=== PATIENT | female | born 1940 | race Caucasian/White ===

== ENCOUNTER → 2016-11-18 | Outpatient (CLI) | payer MEDICARE ==
--- NOTE | 2016-11-18 14:31 | BD ---
EXAMINATION TYPE: MG DEXA axial skeleton. DATE OF EXAM: 11/18/2016 COMPARISON: NONE CLINICAL HISTORY: Postmenopausal screening. Height: 67.5 Weight: 160.1 FRAX RISK QUESTIONS: Alcohol (3 or more units per day): NO Family History (Parent hip fracture): NO Glucocorticoids (More than 3mos): NO (Ex: prednisone, prednisolone, methylprednisolone, dexamethasone, and hydrocortisone). History of Fracture in Adulthood: NO Secondary Osteoporosis: 1. Type 1 Diabetes: NO 2. Hyperthyroidism: NO 3. Menopause before 45: NO 4. Malnutrition: NO 5. Chronic liver disease: NO Rheumatoid Arthritis: NO Current Tobacco Use: NO RISK FACTORS HISTORY OF: Hip Fracture (Right/Left): NO Spine Fracture: NO History of Wrist Fracture: NO Surgery to Spine/Hip(right/left)/Wrist (right/left): NO Family History of Osteoporosis: NO Active: YES Diet low in dairy products/other sources of calcium: NO Postmenopausal woman: AGE 56 Lost more than 2 inches in height since high school: NO Frequent falls: NO Poor Health: NO Hyperparathyroidism: NO Adrenal Insufficiency: NO MEDICATIONS: SYMBALTA Additional History: EXAM MEASUREMENTS: Bone mineral densitometry was performed using the [employer] System. Bone mineral density as measured about the Lumbar spine is: ----- L1-L4(G/cm2): 1.085 T Score Values are as follows: ----- L2: -1.2 ----- L3: -1.0 ----- L4: 0.0 ----- L1-L4: 0.8 Bone mineral density has: INCREASED 0.9 % since study of: 10.25.2011 Bone mineral density about the R hip (g/cm2): 0.765 Bone mineral density about the L hip (g/cm2): 0.745 T Score values are as follows: -----R Neck: -2.0 -----L Neck: -2.1 -----R Total: -2.3 -----L Total: -2.6 Bone mineral density has: DECREASED -10.5 % since study of: 10.25.2011 IMPRESSION: 1. Osteoporosis (T Score less than -2.5) as noted by T Score values at with regards to the left hip. There is increased fracture risk and therapy is usually indicated based on age. Re-Screen 1-2 years. 2.Osteoporosis (T Score less than -2.5) as noted by T Score values at with regards to the right hip. There is increased fracture risk and therapy is usually indicated based on age. Re-Screen 1-2 years. NOTE: T-SCORE=SD OF THE YOUNG ADULT MEAN.
== END | disposition home or self-care (01) ==
LOC: RADBDWWP 07:56
PROVIDERS: ATTEND Family Medicine
DX: M81.0 Age-related osteoporosis without current pathological fracture (principal)
CPT/HCPCS: 77080

== ENCOUNTER → 2018-11-28 | Outpatient (CLI) | payer MEDICARE ==
--- NOTE | 2018-11-28 15:08 | BD ---
EXAMINATION TYPE: Axial Bone Density DATE OF EXAM: 11/28/2018 COMPARISON: 11/18/2016 CLINICAL HISTORY: Z 13.820 Height: 66.7 IN Weight: 161 LBS RISK FACTORS HISTORY OF: Active: YES Postmenopausal woman: AGE 54 Frequent falls: YES LOSES BALANCE MEDICATIONS: Thyroid Medications: YES Which medication: Levothyroxine How Lon YEAR Additional Medications: LEVOTHYROXINE, LISINOPRIL, HYDOTHAZIDE, ATORVASTATIN, ESCITALOPRAM, DONEPEZIL EXAM MEASUREMENTS: Bone mineral densitometry was performed using the [employer] System. Bone mineral density as measured about the Lumbar spine is: ----- L1-L4(G/cm2): 1.074 T Score Values are as follows: ----- L2: -1.2 ----- L3: -0.4 ----- L4: -1.0 ----- L1-L4: -0.9 Bone mineral density has: Decreased -1.9% since study of: 11/18/2016 Bone mineral density about the R hip (g/cm2): 0.727 Bone mineral density about the L hip (g/cm2): 0.697 T Score values are as follows: -----R Neck: -2.2 -----L Neck: -2.5 -----R Total: -2.4 -----L Total: -2.6 Bone mineral density has: Decreased -0.7% since study of: 11/18/2016 IMPRESSION: Osteoporosis (T Score less than -2.5). There is increased fracture risk and therapy is usually indicated based on age. Re-Screen 1-2 years. NOTE: T-SCORE=SD OF THE YOUNG ADULT MEAN.
--- NOTE | 2018-11-30 10:57 | MM ---
Reason for exam: screening (asymptomatic). Last mammogram was performed 6 years and 2 months ago. History: Patient is postmenopausal. Family history of breast cancer in mother at age 80. Physical Findings: A clinical breast exam by your physician is recommended on an annual basis and results should be correlated with mammographic findings. MG 3D Screening Mammo W/Cad Bilateral CC and MLO view(s) were taken. Prior study comparison: October 27, 2017, mammogram. October 25, 2016, mammogram. The breast tissue is heterogeneously dense. This may lower the sensitivity of mammography. No significant changes when compared with prior studies. ASSESSMENT: Negative, BI-RAD 1 RECOMMENDATION: Routine screening mammogram of both breasts in 1 year.
== END ==
LOC: RADMAMWWP 14:09
PROVIDERS: ATTEND Obstetrics & Gynecology
DX: Z13.820 Encounter for screening for osteoporosis (principal); Z12.31 Encounter for screening mammogram for malignant neoplasm of breast; Z78.0 Asymptomatic menopausal state; M81.0 Age-related osteoporosis without current pathological fracture; Z80.3 Family history of malignant neoplasm of breast
CPT/HCPCS: 77063; 77067; 77080

== ENCOUNTER → 2019-09-02 | Outpatient (CLI) | payer MEDICARE ==
--- NOTE | 2019-09-02 12:12 | MR ---
EXAMINATION TYPE: MR brain wo/w con DATE OF EXAM: 09/02/2019 9:06 AM COMPARISON: NONE HISTORY: G81.90 hemiplegia, Balance loss, Memmory loss/Forgetfulness CONTRAST: Patient received 7.5 mL intravenous Gadavist gadolinium contrast. Multiplanar and multispin-echo imaging of the brain was performed . Pre and post contrast enhanced i mages are obtained. The ventricles, basal cisterns and sulci overlying the cerebral convexities are at least moderately e nlarged with a greater central component raising the possibility of normal pressure hydrocephalus. There is evidence of mild periventricular white matter ischemic demyelination. Remote deep white matter insults are also noted. No acute edema is seen on diffusion weighted imaging. There is no evidence for midline shift or mass effect. Acute intracranial hemorrhage or extra-axial collection is not evident. No enhancing lesions are seen. The paranasal sinuses and mastoid air cells are well-aerated. IMPRESSION: Age-related atrophic and chronic small vessel ischemic change. Correlate for normal pressure hydroce phalus. No acute intracranial process at this time. No enhancing lesions are seen.
== END | disposition home or self-care (01) ==
LOC: RADMRIMAIN 08:04
PROVIDERS: ATTEND Family Medicine
DX: G31.1 Senile degeneration of brain, not elsewhere classified (principal); I67.82 Cerebral ischemia
CPT/HCPCS: 70553; A9585

== ENCOUNTER → 2019-12-13 | Outpatient (CLI) | payer MEDICARE ==
--- NOTE | 2019-12-15 09:58 | MR ---
MRI CERVICAL SPINE: CLINICAL HISTORY: Stiffness, Myelopathy gait ataxia. TECHNIQUE: Multiplanar, multisequence imaging of the cervical spine is performed without IV contrast. COMPARISON: None. FINDINGS: Coronal images show slight levoconvex scoliotic curvature centered upper thoracic spine. Sa gittal images of the cervical spine show the craniocervical junction to appear within normal limits. The cervical and upper thoracic spinal cord is normal in caliber and signal. Slight grade 1 retrolis thesis C3 on C4 and C5 on C6. The vertebral body heights are normal. Mild multilevel disc space narr owing greatest C5-C6 and C6-C7 levels. Mild multilevel anterior spurring. The bone marrow signal int ensity is within normal limits. Axial images show C2-C3, C3-C4, and C4-C5 levels to appear grossly within normal limits. Axial images at C5-C6 level showed broad based left paracentral spur disc complex effacing anterolate ral thecal sac and causing moderate to severe bilateral neural foraminal narrowing as there is uncove rtebral facet degenerative change also present bilaterally. Axial images at C6-C7 levels with broad-based right paracentral/foraminal disc protrusion effacing an terolateral thecal sac and causing asymmetric moderate right-sided neural foraminal narrowing. Axial images at C7-T1 level are within normal limits. Small subcentimeter rim T1 and T2 hyperintense lesion right inferior C7 level of uncertain etiology favored benign. IMPRESSION: Scoliotic curvature with multilevel degenerative changes C5-C6 and C6-C7 level as detaile d above.
== END | disposition home or self-care (01) ==
LOC: RADMRIMAIN 09:43
PROVIDERS: ATTEND Psychiatry & Neurology Neurology
DX: M48.02 Spinal stenosis, cervical region (principal); M50.023 Cervical disc disorder at C6-C7 level with myelopathy; M47.12 Other spondylosis with myelopathy, cervical region; M41.82 Other forms of scoliosis, cervical region
CPT/HCPCS: 72141

== ENCOUNTER 2021-03-18 09:31 | Day surgery (SDC) | payer MEDICARE ==
[2021-03-16 11:08] VITALS: BMI 26.6
[~2021-03-18 09:31] MED LIST: LACTATED RINGERS 1,000 ML IV SCH
[2021-03-18 10:23] VITALS: RESP 16; TEMP 97.1
--- NOTE | 2021-03-18 11:06 | P.PCN ---
Date of Procedure: 03/18/21 Procedure(s) Performed: Preoperative diagnosis: Normal pressure hydrocephalus Post operative diagnoses: Normal pressure hydrocephalus Procedure= lumbar puncture Anesthesia local infiltration with lidocaine 1% 3 mL. Condition: stable Complication: none. Description of the procedure procedure risk and benefits discussed with the patient and family, consent signed. Patient and the procedure area placed in lateral position ( right side down ), back prepped with chlorhexidine 3 times been local infiltration of the skin and subcutaneous tissue with lidocaine 1% 3 mL for skin and subcu interstitial infiltrations at L4 5 levels then 20-gauge Quincke-type needle advanced slowly at L4- 5 interlaminar space there was positive cerebrospinal fluid which was clear, no heme, no paresthesia ,total of 32 ML of clear cerebrospinal fluid collected in 4 different tubes 8 mL in each, then the needle removed and a Band-Aid applied and patient tolerated the procedure well without any complications. Opening pressure=17 cm water . Closing pressure=8 cm water. Total volume removed=32 ml of clear cerebrospinal fluid
[2021-03-18 11:30] VITALS: BP 184/69; PULSE 59
[2021-03-18] MEDS ORDERED: IV FLUID CONTINUATION 1,000 ML IV ONE (11:33)
[2021-03-18 12:21] LABS: Glucose,CSF 68 mg/dL (40-70); Total Protein,CSF 33 mg/dL (12-60)
[2021-03-18 14:22] LABS: CSF Tube Number 4
[2021-03-18 14:23] LABS: Appearance,CSF Clear; Nucleated Cells, CSF 1 u/L (0-5); Red Blood Cell,CSF 0 u/L (0-10)
== END 2021-03-18 11:46 | disposition home or self-care (01) ==
LOC: ORPAIN 09:31
PROVIDERS: ATTEND Specialist
DX: G91.2 (Idiopathic) normal pressure hydrocephalus (principal)
CPT/HCPCS: 62270; 82945; 84157; 88108; 89050; 99152; 99153

== ENCOUNTER → 2021-04-26 | Outpatient (CLI) | payer MEDICARE ==
--- NOTE | 2021-04-27 01:57 | MR ---
EXAMINATION TYPE: MR brain wo/w con DATE OF EXAM: 04/26/2021 COMPARISON: 09/02/2019 HISTORY: Abnormal gait, amnesia. CONTRAST: Standard multiplanar, multisequence MRI departmental protocol images were obtained without contrast a nd with 7.5 mL intravenous Gadavist gadolinium contrast. There is enlargement of the ventricles. There is cerebral cortical atrophy. There is no mass effect o r midline shift. There is no sign of intracranial hemorrhage. There is poorly marginated 7 mm area of increased signal within the central [place]ina on the T2 and FLAIR images. The diffusion images show no ev idence of an acute infarct. There is increased signal in the white matter adjacent to the lateral frances tricles and coalescent distribution measuring up to 1 cm in thickness. There is significant thinning of the corpus callosum. The contrast images show normal enhancement of the venous sinuses. There is no pathologic enhancement . IMPRESSION: Cerebral atrophy and chronic small vessel extensive ischemia. Hydrocephalus. 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 No acute intracranial abnormality. No significant change compared to last exam.
== END | disposition home or self-care (01) ==
LOC: RADMRIMAIN 18:37
PROVIDERS: ATTEND Neurological Surgery
DX: G31.89 Other specified degenerative diseases of nervous system (principal); I67.82 Cerebral ischemia; G91.9 Hydrocephalus, unspecified; I63.81 Other cerebral infarction due to occlusion or stenosis of small artery
CPT/HCPCS: 70553; A9585

== ENCOUNTER → 2021-05-10 | Outpatient (CLI) | payer MEDICARE ==
--- NOTE | 2021-05-10 12:04 | MR ---
EXAMINATION TYPE: MR brain wo/w con DATE OF EXAM: 05/10/2021 COMPARISON: Recent MRI brain 2 weeks ago and older study 2019. HISTORY: PROBLEMS WITH MEMORY/FORGETFULNESS TECHNIQUE: Multiplanar, multisequence images of the brain and brainstem is performed without and with IV contras t, utilizing 8ML mL intravenous Gadavist . FINDINGS: Diffusion weighted images demonstrate no evidence of a recent infarct or other diffusion ab normality. Ventricular and sulcal prominence is redemonstrated including ventricular prominence more prominent than the degree of sulcal effacement consistent with moderate diffuse hydrocephalus. Stable prominence of the fourth ventricle. Scattered focal and confluent areas of T2 hyperintensity through out the deep and periventricular white matter. Midline structures demonstrate normal morphology. The craniocervical junction appears within normal limits. Post contrast images demonstrate no abnormal enhancement. The dural venous sinuses appear pa tent. The visualized sinuses are clear and the globes are intact. Nasal septum is redemonstrated slig htly deviated to right of midline. IMPRESSION: Mild to moderate diffuse cerebral atrophy and moderate to advanced chronic small vessel i schemic change redemonstrated. Underlying moderate hydrocephalus again seen. No significant change fr om prior MRIs.
== END | disposition home or self-care (01) ==
LOC: RADMRIMAIN 06:30
PROVIDERS: ATTEND Neurological Surgery
DX: I67.82 Cerebral ischemia (principal); G31.89 Other specified degenerative diseases of nervous system; G91.9 Hydrocephalus, unspecified
CPT/HCPCS: 70553; A9585

== ENCOUNTER → 2021-08-06 | Outpatient (CLI) | payer MEDICARE ==
--- NOTE | 2021-08-06 15:08 | CT ---
EXAMINATION TYPE: CT brain wo con DATE OF EXAM: 08/06/2021 COMPARISON: Correlation MRI 05/10/2021 HISTORY: 81-year-old female r/o bleed and recheck shunt TECHNIQUE: Examination was done in axial plane without intravenous contrast. Coronal and sagittal r econstructions performed. CT DLP: 1248 mGycm Automated exposure control for dose reduction was used. FINDINGS: Anterior right frontal approach NANOSCIENCE TECHNICIAN shunt catheter. Tip is at the midline anterior third ventricle. Similar moderate hydrocephalus with Roosevelt's ratio calculated at 0.34. There is no evidence of acute intracranial hemorrhage, acute ischemic changes, mass, mass-effect, or extra-axial fluid collection. There is no effacement of cerebral sulci or basal subarachnoid cister ns. There is no midline shift. Baker-white matter distinction is preserved. Moderate confluent white matter hypodensities both cerebral hemispheres. Benign basal ganglion calcifications both sides. Slightly bulbous appearance to the top of the basilar artery at 4 mm, unchanged. Rightward nasal septal deviation. Paranasal sinuses and mastoid air cells well pneumatized. Small 1.0 cm polyp or mucosal retention cyst floor of the left maxillary sinus. IMPRESSION: 1. Interval placement of anterior right frontal approach NANOSCIENCE TECHNICIAN shunt catheter. There is similar moderate ventriculomegaly, Roosevelt's ratio 0.34, when compared to the 05/10/2021 MRI prior to shunt placement. 2. Similar moderate confluent white matter hypodensities. 3. No acute intracranial abnormality seen.
== END | disposition home or self-care (01) ==
LOC: RADCTMAIN 13:30
PROVIDERS: ATTEND Neurological Surgery
DX: Z98.2 Presence of cerebrospinal fluid drainage device (principal)
CPT/HCPCS: 70450

== ENCOUNTER → 2021-11-17 | Outpatient (CLI) | payer MEDICARE ==
--- NOTE | 2021-11-17 08:12 | CT ---
EXAMINATION TYPE: CT brain wo con DATE OF EXAM: 11/17/2021 COMPARISON: 08/06/2021 INDICATION: Presence of cerebrospinal fluid, loss of balance memory loss incontinence DLP: 1054.20 mGycm, Automated exposure control for dose reduction was used. CONTRAST: None CT of the brain is performed utilizing 3 mm thick sections through the posterior fossa and 3 mm thick sections through the remaining calvarium. Study is performed within 24 hours of arrival to the hosp [facility]. No abnormal hyperdensity is present to suggest an acute intracranial hemorrhage. No mass lesion is evident. There is some mild periventricular white matter hypodensity, most likely on the basis of chronic whit e matter ischemic changes. This present previously. Some physiologic basal ganglion calcifications pr esent. Ventricles and sulci are prominent for the patient age. No significant temporal horn rounding is german dent. These appear slightly less prominent than the comparison study. Shunt catheter enters on the ri t frontal region with the tip in the midline. No increasing ventricular dilatation is evident. Thir d ventricle is midline. Fourth ventricle is midline. Paranasal sinuses and mastoid air cells within the [id number] are clear. IMPRESSIONS: 1. Atrophy with chronic appearing periventricular white matter ischemic-type changes. 2. Shunt catheter appears stable in position. Ventricular prominence is minimally less than the gerson rison study. No increasing hydrocephalus is evident.
== END | disposition home or self-care (01) ==
LOC: RADCTMAIN 06:48
PROVIDERS: ATTEND Neurological Surgery
DX: G31.9 Degenerative disease of nervous system, unspecified (principal); I67.82 Cerebral ischemia; Z98.2 Presence of cerebrospinal fluid drainage device
CPT/HCPCS: 70450

== ENCOUNTER → 2022-07-20 | Outpatient (CLI) | payer MEDICARE ==
--- NOTE | 2022-07-20 14:59 | CT ---
EXAMINATION TYPE: CT brain wo con DATE OF EXAM: 07/20/2022 HISTORY: Follow up for shunt placement. CT DLP: 1138 mGycm. Automated Exposure Control for Dose Reduction was Utilized. TECHNIQUE: CT scan of the head is performed without contrast. COMPARISON: CT brain November 17, 2021. FINDINGS: Persistent right frontal kenyon hole with TEACHER LEARNING DISABLED shunt catheter terminating near the level of for amen of [place]. Persistent mild to moderate ventricular and sulcal prominence with ventricular promin ence slightly greater than degree of sulcal effacement. No significant change from most recent prior CT in ventricular size . Persistent moderate low attenuation in the deep and periventricular white m atter redemonstrated. No midline shift is seen. Globes are intact and visualized paranasal sinuses ar e clear IMPRESSION: As above. No significant change from most recent CT.
== END | disposition home or self-care (01) ==
LOC: RADCTMAIN 14:34
PROVIDERS: ATTEND Neurological Surgery
DX: Z98.2 Presence of cerebrospinal fluid drainage device (principal)
CPT/HCPCS: 70450

== ENCOUNTER → 2022-10-12 | Outpatient (CLI) | payer MEDICARE ==
--- NOTE | 2022-10-13 08:44 | CT ---
EXAMINATION TYPE: CT brain wo con DATE OF EXAM: 10/12/2022 COMPARISON: 07/20/2022 HISTORY: f/u shunt placement CT DLP: 1029.9 mGycm Automated exposure control for dose reduction was used. FINDINGS: Persistent right frontal kenyon hole with CAFETERIA ASSOCIATE shunt catheter terminating near the level of foramen of [place]. Persistent mild to moderate ventricular and sulcal prominence with ventricular prominence sligh tly greater than degree of sulcal effacement. No significant change from most recent prior CT in vent ricular size . Persistent moderate low attenuation in the deep and periventricular white matter redemonstrated. No m idline shift is seen. Globes are intact and visualized paranasal sinuses are clear of basal ganglia c alcifications noted. Hypoattenuation within the white matter bilaterally Remote white matter ischemia. Surgical changes in both calvarium. Slightly prominent basilar tip and 4 mm is stable. IMPRESSION: THERE REMAINS MODERATE VENTRICULAR PROMINENCE. FINDINGS ARE COMPATIBLE STABLE HYDROCEPHALUS. THE CATH ETER IS IN SIMILAR POSITION RELATIVE TO THE PRIOR EXAM NEAR THE FORAMEN. OF [place]. THE SHUNT MAY EXTE ND OUTSIDE THE VENTRICULAR MARGIN CORRELATE FOR POSITION. FINDINGS ARE STABLE..
== END | disposition home or self-care (01) ==
LOC: RADCTMAIN 17:04
PROVIDERS: ATTEND Neurological Surgery
DX: Z98.2 Presence of cerebrospinal fluid drainage device (principal)
CPT/HCPCS: 70450

== ENCOUNTER → 2023-06-06 | Outpatient (CLI) | payer MEDICARE ==
--- NOTE | 2023-06-06 13:05 | CT ---
EXAMINATION TYPE: CT brain wo con DATE OF EXAM: 06/06/2023 COMPARISON: 10/12/2022 INDICATION: cerebral spinal fluid shunt DLP: 1141 mGycm, Automated exposure control for dose reduction was used. CONTRAST: None CT of the brain is performed utilizing 3 mm thick sections through the posterior fossa and 3 mm thick sections through the remaining calvarium. Study is performed within 24 hours of arrival to the hosp ital. No abnormal hyperdensity is present to suggest an acute intracranial hemorrhage. No mass lesion is evident. No acute infarcts are evident. Mild periventricular white matter hypodensity is present, likely on th e basis of chronic white matter ischemic changes. Ventricles and sulci are mildly prominent. for the patient age. No significant temporal horn dilatat ion is evident. Lateral ventricles appear symmetrical. Third ventricle is midline. Fourth ventricle i s midline. Findings are stable from comparison. Paranasal sinuses and mastoid air cells within the [id number] are clear. IMPRESSION: 1. Shunt catheter stable in position. No hydrocephalus. 2. Stable chronic appearing periventricular white matter ischemic type change with atrophy.
== END | disposition home or self-care (01) ==
LOC: RADCTMAIN 12:16
PROVIDERS: ATTEND Specialist
DX: I67.82 Cerebral ischemia (principal); Z98.2 Presence of cerebrospinal fluid drainage device; G31.89 Other specified degenerative diseases of nervous system
CPT/HCPCS: 70450

== ENCOUNTER 2023-06-12 04:40 | Emergency (ER) | payer MEDICARE ==
[2023-06-12 04:51] VITALS: RESP 18
[2023-06-12] MEDS: SODIUM CHLORIDE 0.9% 1,000 ML IV STA (05:49)
[2023-06-12 06:18] LABS: Basophils # (A) 0.1 k/uL (0-0.2); Basophils % (A) 0 %; Eosinophils # (A) 0.2 k/uL (0-0.7); Eosinophils % (A) 2 %; HCT 33.7 % (34.0-46.0); HGB 10.9 gm/dL (11.4-16.0); Lymphocytes # (A) 1.6 k/uL (1.0-4.8); Lymphocytes % (A) 12 %; MCH 29.9 pg (25.0-35.0); MCHC 32.4 g/dL (31.0-37.0); MCV 92.3 fL (80.0-100.0); Mean Platelet Volume 8.3; Monocytes # (A) 0.5 k/uL (0-1.0); Monocytes % (A) 4 %; Neutrophils # (A) 10.8 k/uL (1.3-7.7); Neutrophils % (A) 81 %; Platelet Count 270 k/uL (150-450); RBC 3.65 m/uL (3.80-5.40); RDW 14.1 % (11.5-15.5); WBC 13.4 k/uL (3.8-10.6)
[2023-06-12 06:31] LABS: ALT 58 U/L (4-34); AST 153 U/L (14-36); African American GFR (CKD) 57 (>60 ml/min/1.73 sqM); Alkaline Phosphatase 110 U/L (38-126); Amylase 44 U/L (30-110); Anion Gap 7 mmol/L; Blood Urea Nitrogen 34 mg/dL (7-17); Calcium 9.5 mg/dL (8.4-10.2); Carbon Dioxide 27 mmol/L (22-30); Chloride 108 mmol/L (98-107); Glucose 138 mg/dL (74-99); Lipase 103 U/L (23-300); Non-African American GFR(CKD) 49 (>60 ml/min/1.73 sqM); Potassium 3.9 mmol/L (3.5-5.1); Sodium 142 mmol/L (137-145); Total Bilirubin 0.4 mg/dL (0.2-1.3); Total Protein 6.7 g/dL (6.3-8.2)
--- NOTE | 2023-06-12 06:50 | ED ---
General Adult HPI - General Chief complaint: Abdominal Pain Stated complaint: Abdominal Pain Time Seen by Provider: 06/12/23 05:20 Source: patient, RN notes reviewed, old records reviewed Mode of arrival: ambulatory Limitations: no limitations - History of Present Illness Initial comments: Is a 83-year-old female presents emergency department with acute onset of abdominal pain. Has a history of hypertension, hyperlipidemia, memory impairmen t, with a ocular shunt for normal pressure hydrocephalus. Awoke this morning at approximately 4 AM with severe nonfocal abdominal pain. Resolved by the time she arrived in the emergency department less than 15 minutes later. Has no acute complaints at this time. Is resting comfortably. No symptoms prior to this event. Presents with her . Chest pain, abdominal pain, nausea, vomiting, diarrhea, constipation. Denies shortness of breath. Presents for further evaluation. - Related Data Home Medications Medication Instructions Recorded Confirmed Donepezil HCl [Aricept ODT] 10 mg PO HS 03/16/21 03/16/21 Escitalopram [Lexapro] 10 mg PO HS 03/16/21 03/16/21 Levothyroxine Sodium [Synthroid] 88 mcg PO QAM 03/16/21 03/16/21 Rosuvastatin Calcium 10 mg PO HS 03/16/21 03/16/21 Trospium Chloride [Sanctura] 20 mg PO BID 03/16/21 03/16/21 lisinopriL [Prinivil] 10 mg PO QAM 03/16/21 03/16/21 Allergies Allergy/AdvReac Type Severity Reaction Status Date / Time No Known Allergies Allergy Verified 06/12/23 04:50 Review of Systems ROS Statement: Those systems with pertinent positive or pertinent negative responses have been documented in the HPI. Review of Systems: CONST: Denies fever EYES: Denies blurry vision ENT: Denies nasal congestion C/V: Denies Chest pain RESP: Denies shortness of breath GI: Denies abdominal pain : Denies dysuria SKIN: Denies rash. MSK: Denies joint pain. NEURO: Denies headache ROS Other: All systems not noted in ROS Statement are negative. Past Medical History Past Medical History: Hyperlipidemia, Hypertension, Memory Impairment Additional Past Medical History / Comment(s): being worked for normal pressure hydrocephalus,increased loss of balance-using a walker, hx urinary incontince History of Any Multi-Drug Resistant Organisms: None Reported Additional Past Surgical History / Comment(s): childbirth,colonoscopies, shunt Past Anesthesia/Blood Transfusion Reactions: No Reported Reaction Past Psychological History: Anxiety Smoking Status: Former smoker Past Alcohol Use History: None Reported Past Drug Use History: None Reported - Past Family History Mother Family Medical History: Cancer Additional Family Medical History / Comment(s): breast General Exam - General Exam Comments Initial Comments: General: Appears in no acute distress. HEAD: Normal with no signs of head trauma. EYES: PERRLA, EOMI, conjunctiva normal, no discharge. ENT: Hearing grossly intact, normal oropharynx. RESPIRATORY: Clear breath sounds bilaterally. No wheezes, rales, or rhonchi. C/V: Regular rate and rhythm. S1 and S2 auscultated, no edema, peripheral pulses 2+ and intact throughout ABD: Abd is soft, nontender, nondistended EXT: Normal range of motion, no obvious deformity SKIN: No rashes or lesions observed on exposed skin. NEURO: Alert and oriented x 3. At her mental status baseline. Limitations: no limitations Course Vital Signs 06/12/23 06/12/23 04:48 07:28 Temperature 98.3 F 98.2 F Pulse Rate 54 L 62 Respiratory 18 18 Rate Blood Pressure 180/73 189/72 O2 Sat by Pulse 100 100 Oximetry Medical Decision Making - Medical Decision Making Was pt. sent in by a medical professional or institution ([facility], [employer]SEMBLER, urgent care, hospital, or snf...) When possible be specific @ -No Did you speak to anyone other than the patient for history (EMS, parent, family, police, friend...)? What history was obtained from this source @ -Patient's helps with patient's past medical history. Did you review nursing and triage notes (agree or disagree)? Why? @ -I reviewed and agree with nursing and triage notes Were old charts reviewed (outside hosp., previous admission, EMS record, old EKG, old radiological studies, urgent care reports/EKG's, snf records)? Report findings @ -No old charts were reviewed Differential Diagnosis (chest pain, altered mental status, abdominal pain women, abdominal pain men, vaginal bleeding, weakness, fever, dyspnea, syncope, headache, dizziness, GI bleed, back pain, seizure, CVA, palpatations, mental health, musculoskeletal)? @ -Abdominal pain, gastritis, electrolyte abnormality, UTI. This list is not all inclusive. EKG interpreted by me (3pts min.). @ -As above X-rays interpreted by me (1pt min.). @ -None done CT interpreted by me (1pt min.). @ -None done U/S interpreted by me (1pt. min.). @ -None done What testing was considered but not performed or refused? (CT, X-rays, U/S, labs)? Why? @ -Considered imaging however patient has no symptoms at this time. Will obtain laboratory studies first and patient and patient's were in agreement this plan. What meds were considered but not given or refused? Why? @ -None Did you discuss the management of the patient with other professionals (professionals i.e. , PA, ELECTRONICS ASSEMBLER, lab, RT, psych nurse, high school social studies teacher, nuclear unit operator, teacher, chief resource officer, case repairer)? Give summary @ -No Was smoking cessation discussed for >3mins.? @ -No Was critical care preformed (if so, how long)? @ -No Were there social determinants of health that impacted care today? How? (Homelessness, low income, unemployed, alcoholism, drug addiction, transportation, low edu. Level, literacy, decrease access to med. care, [facility], rehab)? @ -No Was there de-escalation of care discussed even if they declined (Discuss DNR or withdrawal of care, Hospice)? DNR status @ -No What co-morbidities impacted this encounter? (DM, HTN, Smoking, COPD, CAD, Cancer, CVA, ARF, Chemo, Hep., AIDS, mental health diagnosis, sleep apnea, morbid obesity)? @ -None Was patient admitted / discharged? Hospital course, mention meds given and route, prescriptions, significant lab abnormalities, going to OR and other per tinent info. @ -Based on the patient's presentation and physical exam, presents emergency department complaining of nonspecific abdominal pain that resolved prior to arrival. Lasted less than 15 minutes. Denies any other associated symptoms. We will obtain screening abdominal labs as well as screening EKG. in agreement this plan. She will be given a 1 L fluid bolus. EKG shows no signs of acute ischemia.Laboratory studies are all within acceptable limits at this time. Urinalysis was pending but returned normal. On reevaluation, patient has no symptoms. Discussed option of CT imaging and we all agree including her to defer at this time. Patient be discharged home at this time with strict return precautions. I instructed the patient to follow up with their PCP in the next 1-3 days. I explained that the patient should return to the emergency department if they ex perience any worsening symptoms. Strict return precautions were discussed with the patient. The patient expressed understanding of these instructions. I answered all questions that the patient had. The patient was discharged home in good condition with their prescriptions and follow up information. Undiagnosed new problem with uncertain prognosis? @ -No Drug Therapy requiring intensive monitoring for toxicity (Heparin, Nitro, Insulin, Cardizem)? @ -No Were any procedures done? @ -No Diagnosis/symptom? @ -Abdominal pain of unknown etiology Acute, or Chronic, or Acute on Chronic? @ -Acute Uncomplicated (without systemic symptoms) or Complicated (systemic symptoms)? @ -Uncomplicated Side effects of treatment? @ -None Exacerbation, Progression, or Severe Exacerbation] @ -No Poses a threat to life or bodily function? @ -Unlikely - Lab Data Result diagrams: 06/12/23 05:51 06/12/23 05:51 Lab Results 06/12/23 06/12/23 06/12/23 Range/Units 05:51 05:51 05:51 WBC 13.4 H (3.8-10.6) k/uL RBC 3.65 L (3.80-5.40) m/uL Hgb 10.9 L (11.4-16.0) gm/dL Hct 33.7 L (34.0-46.0) % MCV 92.3 (80.0-100.0) fL MCH 29.9 (25.0-35.0) pg MCHC 32.4 (31.0-37.0) g/dL RDW 14.1 (11.5-15.5) % Plt Count 270 (150-450) k/uL MPV 8.3 Neutrophils % 81 % Lymphocytes % 12 % Monocytes % 4 % Eosinophils % 2 % Basophils % 0 % Neutrophils # 10.8 H (1.3-7.7) k/uL Lymphocytes # 1.6 (1.0-4.8) k/uL Monocytes # 0.5 (0-1.0) k/uL Eosinophils # 0.2 (0-0.7) k/uL Basophils # 0.1 (0-0.2) k/uL Sodium 142 (137-145) mmol/L Potassium 3.9 (3.5-5.1) mmol/L Chloride 108 H (98-107) mmol/L Carbon Dioxide 27 (22-30) mmol/L Anion Gap 7 mmol/L BUN 34 H (7-17) mg/dL Creatinine 1.06 H (0.52-1.04) mg/dL Est GFR (CKD-EPI)AfAm 57 (>60 ml/min/1.73 sqM) Est GFR (CKD-EPI)NonAf 49 (>60 ml/min/1.73 sqM) Glucose 138 H (74-99) mg/dL Plasma Lactic Acid Neftaly (0.7-2.0) mmol/L Calcium 9.5 (8.4-10.2) mg/dL Total Bilirubin 0.4 (0.2-1.3) mg/dL AST 153 H (14-36) U/L ALT 58 H (4-34) U/L Alkaline Phosphatase 110 (38-126) U/L Total Protein 6.7 (6.3-8.2) g/dL Albumin 4.0 (3.5-5.0) g/dL Amylase 44 (30-110) U/L Lipase 103 (23-300) U/L Urine Color Colorless Urine Appearance Clear (Clear) Urine pH 6.0 (5.0-8.0) Ur Specific [place] 1.006 (1.001-1.035) Urine Protein Negative (Negative) Urine Glucose (UA) Negative (Negative) Urine Ketones Negative (Negative) Urine Blood Negative (Negative) Urine Nitrite Negative (Negative) Urine Bilirubin Negative (Negative) Urine Urobilinogen <2.0 (<2.0) mg/dL Ur Leukocyte Esterase Negative (Negative) 06/12/23 Range/Units 05:51 WBC (3.8-10.6) k/uL RBC (3.80-5.40) m/uL Hgb (11.4-16.0) gm/dL Hct (34.0-46.0) % MCV (80.0-100.0) fL MCH (25.0-35.0) pg MCHC (31.0-37.0) g/dL RDW (11.5-15.5) % Plt Count (150-450) k/uL MPV Neutrophils % % Lymphocytes % % Monocytes % % Eosinophils % % Basophils % % Neutrophils # (1.3-7.7) k/uL Lymphocytes # (1.0-4.8) k/uL Monocytes # (0-1.0) k/uL Eosinophils # (0-0.7) k/uL Basophils # (0-0.2) k/uL Sodium (137-145) mmol/L Potassium (3.5-5.1) mmol/L Chloride (98-107) mmol/L Carbon Dioxide (22-30) mmol/L Anion Gap mmol/L BUN (7-17) mg/dL Creatinine (0.52-1.04) mg/dL Est GFR (CKD-EPI)AfAm (>60 ml/min/1.73 sqM) Est GFR (CKD-EPI)NonAf (>60 ml/min/1.73 sqM) Glucose (74-99) mg/dL Plasma Lactic Acid [place]ft[place] 1.8 (0.7-2.0) mmol/L Calcium (8.4-10.2) mg/dL Total Bilirubin (0.2-1.3) mg/dL AST (14-36) U/L ALT (4-34) U/L Alkaline Phosphatase (38-126) U/L Total Protein (6.3-8.2) g/dL Albumin (3.5-5.0) g/dL Amylase (30-110) U/L Lipase (23-300) U/L Urine Color Urine Appearance (Clear) Urine pH (5.0-8.0) Ur Specific [place] (1.001-1.035) Urine Protein (Negative) Urine Glucose (UA) (Negative) Urine Ketones (Negative) Urine Blood (Negative) Urine Nitrite (Negative) Urine Bilirubin (Negative) Urine Urobilinogen (<2.0) mg/dL Ur Leukocyte Esterase (Negative) - EKG Data -: EKG Interpreted by Me EKG Comments: 12-lead Electrocardiogram Interpretation Note EKG was reviewed and interpreted by myself. 12-lead ECG performed at 0 600 is interpreted by me as revealing normal sinus rhythm at a rate of 67 beats per minute. [employer] is normal. MO interval is 168 ms, QRS durations 106 ms, QTc is 426 ms.. There were no ST or T wave abnormalities to suggest myocardial ischemia or injury. R wave progression across the precordium was satisfactory. By my interpretation this EKG is non-diagnostic for acute ischemia. Disposition Clinical Impression: Abdominal pain of unknown etiology Disposition: HOME SELF-CARE Condition: Good Instructions (If sedation given, give patient instructions): Abdominal Pain (ED) Is patient prescribed a controlled substance at d/c from ED?: No Referrals: Oscar Martinez DO [Primary Care Provider] - 1-2 days Time of Disposition: 07:58
[2023-06-12 07:42] LABS: Appearance,Urine Clear (Clear); Bilirubin,Urine Negative (Negative); Blood,Urine Negative (Negative); Color,Urine Colorless; Glucose,Urine (UA) Negative (Negative); Ketones,Urine Negative (Negative); Leukocyte Esterase,Urine Negative (Negative); Nitrite,Urine Negative (Negative); Protein,Urine Negative (Negative); Specific Gravity,Urine 1.006 (1.001-1.035); Urobilinogen,Urine <2.0 mg/dL (<2.0)
[2023-06-12 10:37] VITALS: BP 176/78; PULSE 64; TEMP 98.4
== END 2023-06-12 10:04 | disposition home or self-care (01) ==
LOC: EC 04:40
DX: K59.00 Constipation, unspecified (principal); I10 Essential (primary) hypertension; E78.5 Hyperlipidemia, unspecified; Z87.891 Personal history of nicotine dependence; Z79.899 Other long term (current) drug therapy
CPT/HCPCS: 36415; 80053; 81003; 82150; 83605; 83690; 85025; 93005; 96360; 99284

== ENCOUNTER → 2023-11-07 | Outpatient (CLI) | payer MEDICARE ==
--- NOTE | 2023-11-07 11:42 | CT ---
EXAMINATION TYPE: CT brain wo con CT DLP: 1207 mGycm, Automated exposure control for dose reduction was used. DATE OF EXAM: 11/07/2023 11:32 AM COMPARISON: Multiple CT brain with most recent 06/06/2023 CLINICAL INDICATION:Female, 83 years old with history of Z98.2 presence of CSF drainage device, Prese nce of CSF drainage device, was having issues with dizziness. TECHNIQUE: Brain: Multiple axial CT images of the brain were obtained without IV contrast. . Coronal and sagitta l reformats reviewed. FINDINGS: Persistent right frontal kenyon hole with [employer] shunt catheter terminating near the level of foramen of Mo nroe. Persistent mild to moderate ventricular and sulcal prominence with ventricular prominence sligh tly greater than degree of sulcal effacement. No significant change from most recent prior CT in frances tricular size. Persistent moderate low attenuation in the deep and periventricular white matter redem onstrated. No midline shift is seen. No evidence for acute intraparenchymal hemorrhage. Nonspecific b ilateral basal ganglia calcifications are redemonstrated. Bilateral aphakia. Inferior left maxillary sinus 1.4 cm mucous retention cyst redemonstrated. Remaini ng paranasal sinuses are clear. Mastoid air cells are clear. IMPRESSION: Overall no significant change from prior CT with moderate ventricular prominence compatible with stab le hydrocephalus with catheter in similar position. [facility], , 11/07/2023 11:40 AM
== END | disposition home or self-care (01) ==
LOC: RADCTMAIN 10:47
PROVIDERS: ATTEND Neurological Surgery
DX: Z98.2 Presence of cerebrospinal fluid drainage device (principal)
CPT/HCPCS: 70450

== ENCOUNTER → 2023-11-23 | Outpatient (CLI) | payer MEDICARE ==
--- NOTE | 2023-11-23 12:28 | XR ---
Abdomen HISTORY: CSF drainage device. COMPARISON: None. TECHNIQUE: 2 supine views of the abdomen were obtained. FINDINGS: There is a ventricular shunt catheter tip in the right upper quadrant. The lung bases are clear. The bowel gas pattern is unremarkable. There is a moderate amount of stool within the right colon and minimal stool in the left colon and rectum. The osseous structures are intact. No suspicious abdominal calcifications are seen. IMPRESSION: 1. Ventricular shunt catheter tip in the right upper quadrant. 2. Nonspecific abdomen without evidence of obstruction. [facility], , 11/23/2023 12:25 PM
--- NOTE | 2023-11-23 12:34 | XR ---
EXAMINATION TYPE: XR chest 1V DATE OF EXAM: 11/23/2023 COMPARISON: NONE HISTORY: Ventriculoperitoneal shunt catheter TECHNIQUE: Single frontal view of the chest is obtained. FINDINGS: There is no focal air space opacity, pleural effusion, or pneumothorax seen. The cardiac silhouette size is within normal limits. The osseous structures are intact. There is a ventriculoperitoneal shunt catheter overlying the right hemithorax. The proximal and dista l tips are not demonstrated. IMPRESSION: 1. No acute cardiac pulmonary disease. 2. Ventriculoperitoneal shunt catheter as described above. [facility], , 11/23/2023 12:32 PM
--- NOTE | 2023-11-23 12:36 | XR ---
Skull limited HISTORY: Ventriculoperitoneal shunt catheter. COMPARISON: None TECHNIQUE: AP and lateral views of the skull were obtained. FINDINGS: There is a ventricular shunt catheter tip in the lower midline brain. There is a calvarial defect in the right frontal lobe where the catheter enters the brain. No other focal osseous lesions are seen. IMPRESSION: Ventriculoperitoneal shunt catheter as described above. [facility], , 11/23/2023 12:34 PM
== END | disposition home or self-care (01) ==
LOC: RADXRMAIN 11:26
PROVIDERS: ATTEND Neurological Surgery
DX: Z98.2 Presence of cerebrospinal fluid drainage device (principal)
CPT/HCPCS: 70250; 71045; 74018

== ENCOUNTER → 2024-06-20 | Outpatient (CLI) | payer MEDICARE ==
--- NOTE | 2024-06-20 13:06 | CT ---
EXAMINATION TYPE: CT brain wo con DATE OF EXAM: 06/20/2024 COMPARISON: 11/07/2019 CLINICAL INDICATION: Female, 84 years old with history of Z98.2 PRESENCE OF CEREBROSPINAL FLUID; PHH, HX OF SHUNT. R/O ASSES FLUID CT DLP: 1201 mGycm Automated exposure control for dose reduction was used. FINDINGS: There is a ventricular shunt entering the right frontal lobe and terminating in the left lateral vent ricle. It is unchanged in position. There is moderate to marked dilatation of the lateral and third ventricles unchanged compared to the prior study. There is mild decreased density in the periventricular white matter consistent with trial examiner mike ischemic white matter demyelination. There is no acute intra or extra-axial hemorrhage. There is no mass effect or shift of the midline structures. The posterior fossa including the brainstem, fourth ventricle and cerebellopontine angles appear jennifer sly normal. The intraorbital contents appear normal and symmetric There is mild chronic inflammatory change in the left maxillary sinus. The mastoid air cells are well aerated. IMPRESSION: 1. NO CHANGE IN THE POSITION OF THE SHUNT CATHETER AND NO CHANGE IN THE DILATED LATERAL AND THIRD TAVIA TRICLES COMPARED TO PREVIOUS. THERE IS NO MASS EFFECT OR SHIFT IN MIDLINE STRUCTURES. 2. NO ACUTE INTRA OR EXTRA-AXIAL HEMORRHAGE. [facility], , 06/20/2024 1:04 PM
== END | disposition home or self-care (01) ==
LOC: RADCTMAIN 11:07
PROVIDERS: ATTEND Neurological Surgery
DX: Z98.2 Presence of cerebrospinal fluid drainage device (principal)
CPT/HCPCS: 70450